=== PATIENT | female | born 1960 | race Caucasian/White ===

== ENCOUNTER 2016-12-19 13:30 | Outpatient (RCR) | payer OTHER | END 2016-12-29 | disposition home or self-care (01) | LOC: PTY 13:30 | DX: M54.2 Cervicalgia (principal); G89.29 Other chronic pain | CPT/HCPCS: 97110; 97140; 97162; G0283 ==

== ENCOUNTER 2017-01-17 14:30 | Outpatient (RCR) | payer OTHER | END 2017-01-29 | disposition home or self-care (01) | LOC: PTY 14:30 | DX: M54.2 Cervicalgia (principal); G89.29 Other chronic pain | CPT/HCPCS: 97110; 97140; G0283 ==